=== PATIENT | female | born 1955 | race Caucasian/White ===

== ENCOUNTER 2023-02-09 11:33 | Emergency (ER) | payer MEDICARE ==
[2023-02-09 12:48] LABS: ESTIMATED GFR 95 mL/min (>60)
== END 2023-02-09 14:00 | disposition home or self-care (01) ==
LOC: FB.ED 11:33
DX: E87.8 Other disorders of electrolyte and fluid balance, not elsewhere classified (principal)
CPT/HCPCS: 36415; 70450; 80053; 81001; 85025; 85651; 86140; 99283; 99284